=== PATIENT | male | born 1985 | race Caucasian/White ===

== ENCOUNTER 2023-08-13 01:04 | Emergency (ER) | payer OTHER ==
[2023-08-13] MEDS ORDERED: IBUPROFEN 600 MG TABLET (FP) PO ONE ×2 (01:24→01:28)
[2023-08-13 01:38] VITALS: BP 151/106; PULSE 100; RESP 19; TEMP 98.6; BMI 30.8
== END 2023-08-13 02:21 | disposition home or self-care (01) ==
LOC: FER 01:04
DX: S61.250A Open bite of right index finger without damage to nail, initial encounter (principal); M25.561 Pain in right knee; M25.562 Pain in left knee; Y04.1XXA Assault by human bite, initial encounter
CPT/HCPCS: 99283-25

== ENCOUNTER 2024-01-16 02:56 | Emergency (ER) | payer OTHER ==
[2024-01-16 03:13] VITALS: BP 133/92; PULSE 95; RESP 16; TEMP 98.9; BMI 30.8
== END 2024-01-16 03:49 | disposition home or self-care (01) ==
LOC: FER 02:56
DX: S80.02XA Contusion of left knee, initial encounter (principal); S80.12XA Contusion of left lower leg, initial encounter; Y04.0XXA Assault by unarmed brawl or fight, initial encounter
CPT/HCPCS: 99282-25